=== PATIENT | female | born 1960 | race Caucasian/White ===

== ENCOUNTER → 2017-05-10 | Day surgery (SDC) | payer BC ==
[~2017-05-10] MED LIST: ARMOUR THYROID30 MG PO; FENTANYL CITRATE/PF 100MCG/2 ML INJ ONE; HYDROCHLOROTHIA25 MG PO; LIDOCAINE HCL 2% LOCAL INJ 5 ML SDV VIAL INJ ONE; MIDAZOLAM HCL 2 MG/2 ML VIAL ONE; PANTOPRAZOLE SO40 MG PO; PROPOFOL IV EMULSION 10 MG/ML 20 ML VIAL ONE
--- NOTE | 2017-05-10 09:39 | Operative Report ---
DATE OF PROCEDURE: May 10, 2017 PROCEDURE PERFORMED: Esophagogastroduodenoscopy. PREOPERATIVE DIAGNOSIS: Castro's esophagus. POSTOPERATIVE DIAGNOSES 1. Castro's esophagus. 2. Hiatal hernia. 3. Gastritis. PREOPERATIVE MEDICATIONS: Consisted of TIVA. Using the [employer] video gastroscope, it was inserted into the patient's oropharynx and advanced to the hypopharynx and down to the esophagus. The mucosa in the esophagus was normal until we got down to the lower esophagus. Here, there were changes of Castro's esophagus from 38-39 cm with a hiatal hernia from 39-40 cm. Biopsies were obtained of the area of the Castro's looking for dysplasia. The stomach was entered and insufflated with air. The mucosa of the cardia, fundus, body, and antrum was viewed. There was evidence of gastritis, but no evidence of any ulcerations. Biopsy was obtained in the antrum looking for H. pylori infection. Pylorus was visualized and entered. The duodenal bulb and postbulbar duodenum were found to be within normal limits. The endoscope was then withdrawn back up into the stomach. Retroflex view in the GE junction, cardia, and fundus below with gastritis was present. Hiatal hernia was present. The endoscope was placed in the body of the stomach, and then slowly withdrawn back up into the esophagus, the hypopharynx, oropharynx, and out of the patient's mouth. The procedure was ended. Job#: [id number]
== END | disposition home or self-care (01) ==
LOC: OR 06:29
PROVIDERS: ATTEND Internal Medicine Gastroenterology
DX: K22.70 Barrett's esophagus without dysplasia (principal); K29.51 Unspecified chronic gastritis with bleeding; K44.9 Diaphragmatic hernia without obstruction or gangrene; K21.9 Gastro-esophageal reflux disease without esophagitis; K58.9 Irritable bowel syndrome, unspecified; E03.9 Hypothyroidism, unspecified; Z01.810 Encounter for preprocedural cardiovascular examination; Z80.0 Family history of malignant neoplasm of digestive organs
CPT/HCPCS: 43239; 93005; J2001; J2250